=== PATIENT | male | born 1960 | race Caucasian/White ===

== ENCOUNTER 2020-10-27 19:07 | Emergency (ER) | payer OTHER ==
[~2020-10-27] VITALS: Ht 175.3 cm; Wt 99.8 kg
[2020-10-27 19:18] VITALS: BP 107/71
[2020-10-27] MEDS ORDERED: ZOFRAN IV STA (19:37)
[2020-10-27] MEDS ORDERED: DECADRON IV STA (19:37)
[2020-10-27] MEDS ORDERED: MORPHINE SULFATE IV STA ×2 (19:37→21:59)
--- NOTE | 2020-10-27 19:45 | PCM.EKG ---
[facility] Test Date: 2020-10-27 Test Time: 19:38:37 Pat Name: DEYA ROSADO Department: Room: Gender: M Risk Consultant: NEVA : 1960 Requested By: TRIPP ESPINOZA Order Number: [id number] Reading MD: Tripp Espinoza Measurements Intervals [place] Rate: 115 P: 44 CT: 149 QRS: -54 QRSD: 100 T: 90 QT: 324 QTc: 448 Interpretive Statements Sinus tachycardia Left atrial enlargement Left anterior fascicular block Abnormal R-wave progression, late transition LVH with secondary repolarization abnormality Baseline wander in lead(s) V2 No previous ECG available for comparison Electronically Signed On 10-27-2020 19:53:31 CDT by Tripp Espinoza Please click the below link to view image of tracing.
[2020-10-27] MEDS ORDERED: DECADRON ONE (19:51)
[2020-10-27] MEDS ORDERED: ZOFRAN ONE (19:51)
[2020-10-27] MEDS ORDERED: NS 1000ML 1,000 ML ONE ×2 (19:51→21:12)
--- NOTE | 2020-10-27 19:51 | ER.PDOC ---
General Chief Complaint: Extremities Stated Complaint: PAIN Time seen by MD: 19:25 Source: patient, family Exam Limitations: no limitations History of Present Illness Initial Comments This is a 60-year-old male who describes lower extremity pain that he calls sciatica. It has been going on for about 3 or 4 days. Yesterday he was doing a lot of heavy work on his trailer is getting ready for an upcoming camping trip and thinks that he might have overdid it. He has never seen a physician for these symptoms. He describes pain in the right buttock that is sharp and severe and radiates down the back of the thigh to the right knee. He also describes similar but slightly less severe pain on the left side.There is been no bowel or bladder dysfunction.The pain was mild yesterday but is quite severe today to the point where it is too painful to walk and he was brought into the emergency room in a wheelchair. There is been no fever or chills. He has had foot and ankle swelling in the past but it is worse over the past 3 or 4 days. He also feels a little bit short of breath. He denies any fever or chills or cough. 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 On presentation, the patient is in significant amount of pain and insists on maintaining an upright sitting position on the edge of the gurney and will not recline due to exacerbation of the pain. Allergies: Coded Allergies: naproxen (Verified Allergy, Unknown, 10/27/20) Past Medical History Medical History: coronary artery disease, cardiac problems, hypertension, other (Thoracic aortic aneurysm or dissection) Surgical History: coronary bypass surgery, knee, other (Repair of thoracic aorta a sending dissection or aneurysm) Social History Smoking: non-smoker Alcohol Use: occassionally Drug Use: none Review of Systems Constitutional: denies chills, denies fever EENTM: denies eye pain, denies double vision Respiratory: denies cough; shortness of breath Cardiovascular: denies chest pain, denies syncope Gastrointestinal: denies abdominal pain, denies diarrhea; nausea; denies vomiting Genitourinary: denies dysuria, denies hematuria Musculoskeletal: back pain; denies joint pain Skin: denies lesions, denies rash; other (Easy bruising due to Plavix and aspirin) Psychiatric/Neurological: denies anxiety, denies depressed Physical Exam General Appearance: Alert, Moderate Distress Neuro/Vasc/Tendon: sensation nml, motor nml Skin: warm/dry Head/ENT: nml inspection, pharynx nml Neck/Back: nml inspection, non-tender Abdomen: non-tender Comments Lower extremities: There is an ecchymosis on the left thigh that appears at least a couple days old.Patient has intact active knee extension bilaterally and intact patellar reflexes.There is bilateral pitting edema at the feet and ankles left greater than right. The right dorsalis pedis pulse is readily palpable. The left DP pulse is diminished. The patient has sensation in all the digits and normal foot and toe movement. Results/Orders Results/Orders Orders - LUIS E DYE MD Cbc With Auto Diff (10/27/20 19:37) Comprehensive Metabolic Panel (10/27/20 19:37) Troponin I (10/27/20 19:37) Lactic Acid(Ml) (10/27/20 19:37) Urinalysis (10/27/20 19:37) Ekg-Routine (10/27/20 19:37) Xr Chest 1v (10/27/20 19:37) Start Iv (10/27/20 19:37) Morphine Sulfate (Morphine Sulfate) (10/27/20 19:37) Ondansetron Hcl/Pf (Zofran) (10/27/20 19:37) Dexamethasone Sodium Phosphate (Decadron (10/27/20 19:37) Probnp B-Type Product Lead (10/27/20 19:37) D-Dimer (10/27/20 19:37) 0.9 % Sodium Chloride (Ns 1000ml) (10/27/20 20:00) Ondansetron Hcl/Pf (Zofran) (10/27/20 19:51) Dexamethasone Sodium Phosphate (Decadron (10/27/20 19:51) Morphine Sulfate (Morphine Sulfate) (10/27/20 19:52) Ct Abd Wo Iv Contrast (10/27/20 20:41) Ct Lumbar Wo Contrast (10/27/20 20:41) Covid19 Antigen Olimpia Brittany (10/27/20 20:41) Blood Culture (10/27/20 21:08) Ceftriaxone Sodium (Rocephin) (10/27/20 21:08) 0.9 % Sodium Chloride (Ns 1000ml) (10/27/20 21:30) Ceftriaxone Sodium (Rocephin) (10/27/20 21:12) Acetaminophen (Ofirmev) (10/27/20 21:30) Acetaminophen (Ofirmev) (10/27/20 21:25) Morphine Sulfate (Morphine Sulfate) (10/27/20 21:59) Cta Chest (10/27/20 21:59) Morphine Sulfate (Morphine Sulfate) (10/27/20 22:00) Potassium Chloride (Klor-Con 10) (10/27/20 23:00) Us Bilat Lower Ext Venous Dopp (10/27/20 23:08) Potassium Chloride (Klor-Con 10) (10/28/20 00:33) Vital Signs Date Time Temp Pulse Resp B/P (MAP) Pulse Ox O2 Delivery O2 Flow Rate FiO2 10/27/20 23:20 98.1 95 18 100/67 (78) 96 Room Air 10/27/20 22:20 98.1 105 18 103/73 (83) 95 Room Air 10/27/20 21:20 98.1 136 18 110/86 (94) 96 Room Air 10/27/20 20:20 98.1 137 18 109/79 (89) 96 Room Air 10/27/20 19:18 98.1 111 18 99 10/27/20 19:18 98.1 111 18 10/27/20 19:18 98.1 111 18 107/71 (83) 99 Room Air Administered Medications Medications (Trade) Dose Ordered Sig/Dante Route PRN Reason Start Time Stop Time Status Last Admin Dose Admin Acetaminophen (Ofirmev) 1,000 mg OT IV 10/27/20 21:30 11/26/20 21:29 10/27/20 21:30 1,000 MG Ceftriaxone Sodium 1000 mg/ Sodium Chloride 100 ml @ 100 mls/hr OT STAT IV 10/27/20 21:08 10/27/20 22:07 UNV 10/27/20 21:46 100 MLS/HR Morphine Sulfate (Morphine Sulfate) 4 mg STAT STAT IV 10/27/20 21:59 10/27/20 22:01 DC 10/27/20 22:03 4 MG Morphine Sulfate (Morphine Sulfate) 8 mg STAT STAT IV 10/27/20 19:37 10/27/20 19:44 DC 10/27/20 20:00 8 MG Ondansetron HCl (Zofran) 4 mg OT STAT IV 10/27/20 19:37 10/27/20 19:44 DC 10/27/20 20:00 4 MG Sodium Chloride 1,000 ml @ 150 mls/hr OT ONCE IV 10/27/20 20:00 10/28/20 02:39 10/27/20 20:00 150 MLS/HR Sodium Chloride 1,000 ml @ 999 mls/hr Q1H1M ONCE IV 10/27/20 21:30 10/27/20 22:30 UNV 10/27/20 22:30 999 MLS/HR Laboratory Tests Test 10/27/20 19:45 10/27/20 20:14 10/27/20 20:28 10/27/20 20:30 White Blood Count 13.8 10^3/uL (4.5-11.0) H Red Blood Count 4.89 10^6/uL (4.50-5.90) Hemoglobin 16.1 g/dL (13.9-16.3) Hematocrit 47.9 % (37.0-53.0) Mean Corpuscular Volume 98.0 fL (78-100) Mean Corpuscular Hemoglobin 32.9 pg (26-34) Mean Corpuscular Hemoglobin Concent 33.6 g/dL (33-36.5) Red Cell Distribution Width 11.7 % (11.5-14.5) Platelet Count 100 10^3/uL (150-400) L Mean Platelet Volume 9.5 fL (7.8-11.0) Neutrophils (%) (Auto) 90.6 % (41.0-85.0) *H Lymphocytes (%) (Auto) 3.1 % (24.0-44.0) *L Monocytes (%) (Auto) 3.5 % (5.0-12.0) L Neutrophils # (Auto) 12.5 10^3/uL (1.8-7.7) H Lymphocytes # (Auto) 0.42 10^3/uL1 (1.0-4.8) L Monocytes # (Auto) 0.5 10^3/uL (0.3-0.8) Absolute Immature Granulocyte (auto 0.37 10^3 u/L (0-2) Absolute Eosinophils (auto) 0.0 10^3/uL (0.0-0.2) Immature Granulocytes % 2.70 % (0.00-0.50) H Eosinophils % 0.0 % (0.0-5.0) Basophils % 0.1 % (0.0-0.2) Basophils # 0.0 10^3/uL (0.0-0.1) D-Dimer 6.34 mg/L (0.19-0.49) *H Sodium Level 136 mmol/L (132-145) Potassium Level 3.2 mmol/L (3.6-5.2) L Chloride Level 100.0 mmol/L (96-109) Carbon Dioxide Level 24.2 mmol/L (20.0-32) Anion Gap 15.0 Blood Urea Nitrogen 14 mg/dL (7-18) Creatinine 0.89 mg/dL (0.59-1.40) Estimated GFR () 105.5 (>/=60) Est GFR (CKD-EPI)(Non-Afr [place]) 87.2 (>/=60) BUN/Creatinine Ratio 15.0 Glucose Level 122 mg/dL (70-110) H Calcium Level 8.9 mg/dL (8.4-10.5) Total Bilirubin 1.5 mg/dL (0.2-1.0) H Aspartate Amino Transferase (AST) 22 U/L (0-35) Alanine Aminotransferase (ALT) 44 U/L (12-78) Alkaline Phosphatase 84 U/L (50-136) Troponin I < 0.02 ng/mL (0.00-0.05) Pro-B-Type Natriuretic Peptide 1329 pg/mL (0-125) H Total Protein 7.1 g/dL (6.4-8.2) Albumin 3.5 g/dL (3.4-5.0) Globulin 3.6 Albumin/Globulin Ratio 0.972 Segmented Neutrophils 95 % (31-76) H Lymphocytes 2 % (25-36) L Monocytes 3 % (3-9) Platelet Estimate DECREASED Platelet Morphology NORMAL Urine Collection Type RANDOM Urine Color YELLOW Urine Appearance CLEAR Urine Bilirubin NEGATIVE (NEGATIVE) Urine Ketones NEGATIVE (NEGATIVE) Urine Specific [place] 1.020 (1.005-1.030) Urine pH 5.5 (4.5-8.0) Urine Protein NEGATIVE (NEGATIVE) Urine Urobilinogen 0.2 E.U./dL (0.2) Urine Nitrate NEGATIVE (NEGATIVE) Urine Leukocyte Esterase NEGATIVE (NEGATIVE) Urine Glucose (Auto)(UA) NEGATIVE (NEGATIVE) Urine Blood NEGATIVE (NEGATIVE) Lactic Acid Level 2.4 mmol/L (0.5-1.9) *H Test 10/27/20 20:45 10/27/20 23:30 SARS-CoV-2 Antigen (Rapid) NEGATIVE (NEGATIVE) Lactic Acid Followup at 2 Hours 1.5 mmol/L (0.5-1.9) Progress Progress EKG per my interpretation: There is sinus tachycardia at a rate of 115.QRS complexes are narrow.There is left axis deviation consistent with a left anterior fascicular block. There is delayed R wave progression. There is LVH with strain.There is no ectopy. There are no ischemic ST segments or T waves. 2130: The patient is refusing all further diagnostic testing including the CT angiogram of the chest. I explained to him the abnormal findings of his complaints of shortness of breath and tachycardia along with pedal edema as well as the leukocytosis, markedly elevated D-dimer, the elevated lactic acid level and his history of a type a aortic dissection or aneurysm repair. I explained that his presentation does not seem just like simple sciatica and that was my rationale for ordering the further imaging studies. He says he understands that but still wishes to leave and follow-up with his doctor in [facility]. He agrees to sign out AMA. 2200: Patient reconsidered and now will agree to go ahead with a CT angiogram of the chest provided to get some additional pain medication prior to going for the study. 2315: Suboptimal timing of IV contrast bolus prevents radiologist from assessing CT angiogram for possible pulmonary embolism. Will order venous Doppler ultrasounds of bilateral lower extremities as a surrogate. 0045: Patient appears much more comfortable and his lactic acid level has come down to normal on the second determination. He is now ambulatory. ER DEPART Departure Time of Disposition: 21:32 Disposition: 07 LEFT AGAINST MEDICAL ADVICE Impression: Primary Impression: Lumbar radiculopathy Additional Impressions: Tachycardia Elevated d-dimer Elevated lactic acid level Leukocytosis Elevated brain natriuretic peptide (BNP) level Condition: Against Medical Advice Patient Instructions: Lumbosacral Radiculopathy Referrals: PCP,UNKNOWN (PCP) PRIMARY CARE PROVIDER Duration or Time Spent with Pa: 35 Problem Qualifiers LUIS E DYE MD Oct 27, 2020 19:51
[2020-10-27] MEDS ORDERED: MORPHINE SULFATE ONE ×2 (19:52→22:00)
[2020-10-27] MEDS ORDERED: NS 1000ML 1,000 ML IV ONE ×2 (20:00→21:30)
[2020-10-27 20:12] LABS: BASOPHIL % 0.1 % (0.0-0.2); LYMPHOCYTES # 0.42 10^3/uL1 (1.0-4.8); LYMPHOCYTES % 3.1 % (24.0-44.0); MEAN CORP HGB 32.9 pg (26-34); MONOCYTES # 0.5 10^3/uL (0.3-0.8); MONOCYTES % 3.5 % (5.0-12.0); NEUTROPHIL # 12.5 10^3/uL (1.8-7.7); NEUTROPHILS % 90.6 % (41.0-85.0); PLATELET COUNT 100 10^3/uL (150-400); RED CELL DISTRIBUTION WIDTH 11.7 % (11.5-14.5)
[2020-10-27 20:20] VITALS: BP 109/79
--- NOTE | 2020-10-27 20:20 | NUR ---
PAIN PATIENT REQUESTING MORE PAIN MEDICATIONS, EDP NOTIFIED. NO NEW ORDERS WRITTEN
--- NOTE | 2020-10-27 20:20 | DIREP ---
PROCEDURE:CHEST 1 VIEW COMPARISON:None. INDICATIONS:SOB FINDINGS: LUNGS/PLEURA:Likely granuloma overlying the left upper lung . No significant pulmonary parenchymal abnormalities. No effusions. VASCULATURE:Normal. Unremarkable pulmonary vasculature. CARDIAC:Normal. No cardiac silhouette abnormality or cardiomegaly. MEDIASTINUM:Normal. No visible mass or adenopathy. BONES:Normal. No fracture or visible bony lesion. OTHER:Median sternotomy wires CONCLUSION:No acute airspace disease Dictated by: Rivera Ramos DO on 10/27/2020 at 08:17 PM
[2020-10-27 20:33] LABS: ALANINE AMINOTRANSFERASE(ML) 44 U/L (12-78); ALKALINE PHOSPHATASE 84 U/L (50-136); ASPARTATE AMINO TRANSFERASE 22 U/L (0-35); CALCIUM 8.9 mg/dL (8.4-10.5); CARBON DIOXIDE 24.2 mmol/L (20.0-32); GLUCOSE 122 mg/dL (70-110)
[2020-10-27 20:40] LABS: SEGMENTED NEUTROPHILS 95 % (31-76)
--- NOTE | 2020-10-27 20:40 | NUR ---
D-DIMER 6.34, EDP NOIFIED
[2020-10-27 20:41] LABS: LYMPHOCYTE 2 % (25-36); MONOCYTE 3 % (3-9)
--- NOTE | 2020-10-27 20:44 | NUR ---
PAIN MEDICATION PATIENT REQUESTING PAIN MEDICATION, EDP NOTIFIED
[2020-10-27 20:47] LABS: BILIRUBIN,URINE NEGATIVE (NEGATIVE); UROBILINOGEN,URINE 0.2 E.U./dL (0.2)
--- NOTE | 2020-10-27 21:05 | NUR ---
LACTIC 2.4, EDP NOTIFIED
[2020-10-27] MEDS ORDERED: ROCEPHIN 1,000 MG in NS 100ML 100 ML IV STA (21:08)
--- NOTE | 2020-10-27 21:09 | NUR ---
COVID RESULTS NEGATIVE
[2020-10-27] MEDS ORDERED: ROCEPHIN ONE (21:12)
[2020-10-27 21:20] VITALS: BP 110/86
[2020-10-27] MEDS ORDERED: OFIRMEV 100 ML IV ONE (21:25)
[2020-10-27] MEDS ORDERED: OFIRMEV IV SCH (21:30)
--- NOTE | 2020-10-27 21:39 | NUR ---
ONE SET OF BLOOD CULTURES OBTAINED, UNABLE TO GET SECOND SET. DR. DYE STATED, "THAT'S FINE WE WILL JUST GET ONE."
--- NOTE | 2020-10-27 21:40 | NUR ---
AMA PATIENT IS NOT WANTING TO HAVE CTA, EDP EXPLAINED PATIENT WILL HAVE TO LEAVE AMA. PATIENT IN AGREEANCE.
--- NOTE | 2020-10-27 22:00 | NUR ---
UPDATE THIS NURSE TALKED TO PATIENT THE IMPORTANCE OF HAVING CTA AND PATIENT AGREED TO EXAM
--- NOTE | 2020-10-27 22:08 | DIREP ---
PROCEDURE: CT SPINE LUMBAR W/O TECHNIQUE:Axial cuts were obtained through the lumbar spine. The images were viewed at bone settings. COMPARISON:None. INDICATIONS:low back pain radiating to bilat. LE's FINDINGS: ALIGNMENT:Normal. VERTEBRAE:Inferior endplate sclerosis about the L1 vertebral body. Cannot exclude minimal acute compression deformity, but likely acutely herniated Schmorl's node. No retropulsion.. PARASPINAL AREA:Normal. OTHER:No additional findings. LUMBAR DISC LEVELS T12-L1:Normal. L1-L2:Normal. L2-L3:Mild neural foraminal narrowing from broad-based disc bulge. L3-L4:Mild neural foraminal narrowing from broad-based disc bulge. L4-L5:Moderate to advanced bilateral neural foraminal narrowing from broad-based disc bulge and mild facet disease.. L5-S1:Advanced bilateral neural foraminal narrowing from broad-based posterior disc protrusion and concomitant facet disease.. CONCLUSION: 1. Sclerosis of the inferior endplate of the L1 vertebral body. Likely acutely herniated Schmorl's node 2. Multilevel degenerative joint disease, most prominently L5-S1 Dictated by: Rivera Ramos DO on 10/27/2020 at 09:54 PM
--- NOTE | 2020-10-27 22:09 | DIREP ---
PROCEDURE:CT ABDOMEN W/O COMPARISON:None. INDICATIONS:low back pain, h/o type A aortic dissection repair TECHNIQUE:Axial images were created through the abdomen without intravenous contrast material. No oral contrast was administered. Sagittal and coronal reconstructions were performed from source images. FINDINGS: LUNG BASES:Normal. No visible pulmonary or pleural disease. LIVER:Normal. No significant liver lesions are identified. BILIARY:Normal. No visible dilatation or calcification. PANCREAS:Normal. No lesion, fluid collection, ductal dilatation, or atrophy. SPLEEN:Normal. No enlargement or focal lesion. ADRENALS:Normal. No mass or enlargement. URINARY TRACT:Normal. No focal lesions or hydronephrosis. AORTA/VASCULAR:Normal. No aneurysm. RETROPERITONEUM:Normal. No mass or adenopathy. BOWEL/MESENTERY:Normal. There is no intestinal obstruction, free fluid, free air or mesenteric inflammatory changes. ABDOMINAL WALL:Normal. No mass or hernia. PELVIC ORGANS:The pelvis was not imaged. BONES:See dedicated report of the lumbar spine. Otherwise no acute fracture OTHER:Negative. CONCLUSION:No acute intracavitary process Dictated by: Rivera Ramos DO on 10/27/2020 at 10:07 PM
[2020-10-27 22:20] VITALS: BP 103/73
[2020-10-27] MEDS ORDERED: KLOR-CON 10 PO SCH (23:00)
--- NOTE | 2020-10-27 23:04 | DIREP ---
PROCEDURE:CT PULMONARY ANGIOGRAM TECHNIQUE:Following the intravenous administration of contrast material, axial cuts were obtained through the chest. Sagittal, coronal, and pulmonary artery MIP post-processing reconstructions are provided. Poor pulmonary arterial contrast opacification was achieved. The images were viewed at lung and soft tissue settings. COMPARISON:[facility], , XRAY CHEST SINGLE VW, 10/27/2020, 07:42 PM. INDICATIONS:SOB, elev d-dimer, pedal edema FINDINGS: PULMONARY ARTERIES:Minimal contrast the pulmonary arterial circulation limiting evaluation. Contrast mainly within the aortic circulation. LUNGS:Calcified granuloma left upper lobe. PLEURA:Normal. CARDIAC:Heart size within normal limits. Calcifications at the aortic valve. Coronary artery calcifications status post CABG. THORACIC AORTA:Normal. MEDIASTINUM:Normal. BONES:Sternotomy wires. THYROID:Partially imaged thyroid within normal limits. OTHER:No additional findings. CONCLUSION: 1. Poor IV contrast bolus, cannot characterize for pulmonary embolism. 2. No acute pulmonary infiltrates. Dictated by: Renny Guerrero M.D. on 10/27/2020 at 10:59 PM
--- NOTE | 2020-10-27 23:14 | NUR ---
US CALLED CALLED SHARLA
[2020-10-27 23:20] VITALS: BP 100/67
--- NOTE | 2020-10-27 23:33 | NUR ---
US SHARLA, US IN ROOM FOR EXAM
[2020-10-28] MEDS ORDERED: KLOR-CON 10 PO ONE (00:33)
--- NOTE | 2020-10-28 00:39 | DIREP ---
PROCEDURE:US VENOUS IMAGING BILAT COMPARISON:None. INDICATIONS:edema, pain, elev. d-dimer, suboptimal CTA of chest TECHNIQUE:The lower extremities were evaluated utilizing shelley scale images with segmental compression, color Doppler, and spectral Doppler with respiratory variation and augmentation. FINDINGS: RIGHT Common femoral vein:Patent Superficial femoral vein:Patent Popliteal vein:Patent Posterior tibial vein:Patent Peroneal vein:Patent Greater saphenous vein:Patent Waveforms: Within normal limits. LEFT Common femoral vein:Patent Superficial femoral vein:Patent Popliteal vein:Patent Posterior tibial vein:Patent Peroneal vein:Patent Greater saphenous vein:Patent Waveforms: Within normal limits. CONCLUSION:No visible DVT. Dictated by: Renny Guerrero M.D. on 10/28/2020 at 00:33 AM
[2020-10-28 00:50] VITALS: BP 102/61
--- NOTE | 2020-10-28 00:50 | NUR ---
IV DC'D TIP INTACT, NO BLEEDING
== END 2020-10-28 00:55 | disposition home or self-care (01) ==
LOC: ER 19:07
DX: M54.16 Radiculopathy, lumbar region (principal); R00.0 Tachycardia, unspecified; R79.89 Other specified abnormal findings of blood chemistry; D72.829 Elevated white blood cell count, unspecified; I10 Essential (primary) hypertension; Z20.822 Contact with and (suspected) exposure to COVID-19; Z79.899 Other long term (current) drug therapy; Z88.6 Allergy status to analgesic agent; Z95.1 Presence of aortocoronary bypass graft
CPT/HCPCS: 36415; 71045; 71275; 72131; 74150; 80053; 81003; 83605 ×2; 83880; 84484; 85025; 85379; 87040; 87077; 87186 ×2; 87426; 93005; 93970; 96361; 96374; 96375; 96376; 99285; J0131; J0696 ×2; J1100; J2270 ×2; J2405; J3490; J7030 ×2; Q9965